=== PATIENT | female | born 1965 | race Caucasian/White ===

== ENCOUNTER → 2019-12-18 | Outpatient (CLI) | payer BC ==
[~2019-12-18] MED LIST: ALEVE 220MG220 MG PO; B-121000 MCG PO; CALCITRATE PO; FOSAMAX 70MG TA70 MG PO; HUMIRA40 MG/0.1 SC; IBU400 MG PO; METHOTREXA50 MG/2 ML SQ; MULTI VITAMINS1 TAB PO; PLAQUENIL 200M200 MG PO; PREDNISONE1 MG PO; PREDNISONE10 MG PO; PREVACID 15MG15 M1 PO; RESTASIS0.05% OU; VITAMIN D1000 IU PO
== END ==
LOC: COL.VAS 09:11
DX: R00.2 Palpitations (principal)

== ENCOUNTER → 2020-08-27 | Outpatient (CLI) | payer BC | LOC: MC.RAD 07:39 | DX: Z12.31 Encounter for screening mammogram for malignant neoplasm of breast (principal); N64.89 Other specified disorders of breast ==

== ENCOUNTER → 2020-09-02 | Outpatient (CLI) | payer BC | LOC: MC.RAD 10:55 | DX: N64.89 Other specified disorders of breast (principal) ==

== ENCOUNTER → 2021-04-21 | Outpatient (CLI) | payer BC | LOC: COL.LAB 14:07 | DX: M19.90 Unspecified osteoarthritis, unspecified site (principal); K21.9 Gastro-esophageal reflux disease without esophagitis; L50.9 Urticaria, unspecified ==